=== PATIENT | female | born 1955 | race Caucasian/White ===

== ENCOUNTER 2016-08-29 00:32 | Inpatient (IN) | payer OTHER ==
[2016-08-29] VITALS (20 sets, daily range): BP systolic 95–123; BP diastolic 50–82; PULSE 80–118; RESP 12–20; O2SAT 93–100
[~2016-08-29 00:32] MED LIST: CITA20TA PO; CITA40TA PO; CLONAZEPAM0.5 M1 PO; ESTR1TAB5 PO; GABA800T PO; OXYC-176 PO
--- NOTE | 2016-08-29 00:41 | ED.REPORT ---
HPI-Overdose/Alcohol Toxicity Date of Service Aug 29, 2016 ED Provider: Kenton Gomez MD The patient is a 61 year old female who was brought to the ED via EMS after being found unconscious in her home. She was found next to two empty bottles of her normal medications (Clonazepam and Gabapentin) and is suspected to have ingested both of these. Witness states that she was making suicidal statements earlier tonight, having texted her children goodbyes. Witness also reports that she was drinking earlier tonight, she was awake and intoxicated 40 minutes prior to EMS arrival. EMS reports a GCS of 3 on arrival and she was intubated in the field (7.5 tube, marked 23cm at the teeth). EMS gave etomidate en route and Versed just prior to arrival at the ED. Nursing Notes Stated Complaint: OVERDOSE Nursing Notes Reviewed: Yes Allergies: Coded Allergies: carisoprodol (Verified Allergy, Severe, ANAPHYLAXIS, 06/26/09) meperidine HCl (Verified Adverse Reaction, Intermediate, N/V, 06/26/09) General Time Seen by Provider: 00:32 Chief Complaint Ingestion, other, Intoxicated, alcohol Modifying Factors: Intentional Hx Obtained From: Spouse, EMS Arrived By: Ambulance Onset Occurred: 1 - 15 minutes ago Symptom Duration: Since onset Recent Healthcare: No recent doctor visit, No recent hospitalization Similar Sx Previous: Yes Risk-Overdose/Alcohol Tox )( Suicide Risk Stratification RF Statements: Risk factors reviewed Past Medical History Past Medical History Notes: Past medical history limited due to patient condition. Past Medical History Depression (per spouse report) Review of Systems Unable to Obtain ROS Patient condition, Intubated Physical Exam Initial Vital Signs Vital Signs (First) Date Time Temp Pulse Resp B/P Pulse Ox O2 Delivery O2 Flow Rate FiO2 08/29/16 00:32 36.0 118 16 116/62 96 ET Tube Initial VS: Reviewed, Vital signs abnormal Neck: Supple Extremities: Vascular intact, No swelling Skin: Warm Alertness: Positive: Unresponsive Intubated and unresponsive Intubated, O2 sat in 90s 7.5 tube, marked 23 cm at the teeth Cardiovascular: Regular rhythm, Heart sounds NL Heart Rate / Rhythm: Positive: Tachycardia Abdomen: Atraumatic, Soft Mental Status: Positive: Unresponsive Exam limited due to intubation. Head / Eyes: Atraumatic, Normocephalic Pupils pinpoint bilaterally Intubated Interpretation & Diagnostics Lab Results Interpretation Result Diagram: 08/29/16 0450 08/29/16 0450 Test 08/29/16 00:40 08/29/16 01:03 Hold Purple Top Tube Received (Received) Hold Blue Top Tube Received (Received) Magnesium Level 2.2mg/dL (1.6-2.6) Troponin T 0.010ug/L (0.0-0.011) Prealbumin 27mg/dL (20-40) Hold Red Top Tube Received (Received) Hold [place] Top Tube Received (Received) Salicylates Level < 3.0ug/mL (30-250) Acetaminophen Level < 15.0ug/mL Rx (10-25) Alcohol, Quantitative 94mg/dL (0-10) Urine Color Yellow (YELLOW) Urine Appearance Hazy (CLEAR,HAZY) Urine pH 5.5 (5.0-8.0) Urine Specific Latty 1.018 (1.003-1.035) Urine Protein Negativemg/dL (NEG,TRACE) Urine Glucose (UA) Negativemg/dL (NEGATIVE) Urine Ketones Negativemg/dL (NEGATIVE) Urine Occult Blood Negative (NEGATIVE) Urine Nitrite Negative (NEGATIVE) Urine Bilirubin Negative (NEGATIVE) Urine Urobilinogen Normalmg/dL (NORMAL) Urine Leukocyte Esterase Negative (NEGATIVE) Urine RBC 0-2/hpf (0-2) Urine WBC 0-5/hpf (0-5) Urine Epithelial Cells Moderate/hpf (NONE-MOD) Urine Crystals Amorphous urates (NONE Urine Bacteria Moderate/hpf (NONE-FEW) Urine Hyaline Casts 5/20/lpf (NONE) Urine Granular Casts None seen (NONE SEEN) Urine Waxy Casts None seen (NONE SEEN) Urine Red Blood Cell Casts None seen (NONE SEEN) Urine White Blood Cell Casts None seen (NONE SEEN) Urine Mucus Present (None Seen) Urine Trichomonas None seen (NONE SEEN) Urine Yeast None (NONE SEEN) Urinalysis Comment None Urine Culture Reflexed Indicated Hold Urine Received (Received) Urine Opiates Screen Negative Urine Methadone Screen Negative Urine Barbiturates Screen Negative Urine Amphetamines Screen Negative Urine Benzodiazepines Screen Positive Urine Cocaine Metabolite Screen Negative Urine Cannabinoids Screen Negative Lab Results Interpretation: Elevated white blood count. Normal Tylenol and aspirin levels. Elevated alcohol level. Rapid urine drug positives for benzos, oxycodone, and tricyclic antidepressants. ECG Interpretation ECG Interpretation: Sinus tachycardia with rate 115 Time: 00:40 Interpreted by: ED physician ECG Interpretation: Sinus rhythm with rate [address] elevation, does not appear consistent with acute NV Time: 02:02 Interpreted by: ED physician X-Ray Chest Interpretation Chest Xray Interpretation: NG tube appears well placed, ET tube is high and may require repositioning. View: Portable, 1 view Interpretation / Wet Read by: Wet read ED physician Re-Eval/Medical Decision Med Decision/Clinical Course 61-year-old female who had an argument with her , drank a bottle of alcohol, and then took the remaining gabapentin and clonazepam pills from her bottles. The total number of pills is not known. There were other pills available but they were in a different location and did not appear to have been overused. Hematocrit of 20-30 minutes she went from slurred speech to completely unconscious. 911 was called and upon arrival the paramedics found her to have an O2 saturation in the low 70s and a GCS of 3. She was intubated without difficulty. She was transferred here in stable condition and continues to be in stable condition. Chest x-ray showed that her ET tube was a little high but all other parameters for tube placement were normal. She had a systolic blood pressure as low as 92 but consistently stayed right around 100. She did have some diffuse J-point elevation and upward sloping repolarization, possibly indicating the develop of a pericarditis. This case was discussed with Poison Control who felt that supportive care was all that was useful or indicated. She will be admitted to the CCU under Dr. Foster's care. Source of Hx: Old records Re-Evaluation/Progress #1: Time of Eval: 01:05 Re-Evaluation/Progress Note: Spoke with police who report that the patient has been admitted to [facility] in [place] for similar symptoms a year ago. Re-Evaluation/Progress #2: Time of Eval: 01:18 Re-Evaluation/Progress Note: After reviewing chest x-ray, have decided to move ET tube two cm further. Re-Evaluation/Progress #3: Time of Eval: 01:29 Re-Evaluation/Progress Note: Rechecked the patient. Her condition is unchanged after administration of 1mg of Narcan. Will order second mg and recheck. Consultation : Referral / Consult Name: Kubisty,Ani A MD Call Returned at: 01:00 Note: Discussed the patient's history and symptoms in detail with Dr. Foster, hospitalist, who agrees to admit the patient. Counseled Regarding: Diagnosis, Need for admission Discharge & Departure Impression: Primary Impression: Polysubstance overdose Encounter type: initial encounter Injury intent: intentional self-harm Qualified Code: T50.902A - Poisoning by unspecified drugs, medicaments and biological substances, intentional self-harm, initial encounter Additional Impression: Suicide attempt Discharge Condition All VS Reviewed: Yes Condition: Stable Crit Care Except Billable Proc Time Spent: 30-74 minutes Services Performed: Patient management by me, Time spent at bedside, Reviewing test results, Reviewing imaging, Discussing patient care, Documentation in record, Time with fam/surrogate Critical Care Notes: Polydrug overdose requiring intubation and CCU admission. Scribe Attestation Portions of this note were transcribed by Tripp Santillan. I, Dr. Gomez, personally performed the history, physical exam, and medical decision-making; I reviewed and confirmed the accuracy of the information in the transcribed note. Signed by: Raimundo Knox, 08/29/16 01:53. Kenton Gomez MD Aug 29, 2016 00:41 TRIPP SANTILLAN Aug 29, 2016 00:48 personally performed the history, physical exam, and medical decision-making; I reviewed and confirmed the accuracy of the information in the transcribed note. Signed by: Raimundo Knox, 08/29/16 01:53. Kenton Gomez MD Aug 29, 2016 00:41 TRIPP SANTILLAN Aug 29, 2016 00:48
[2016-08-29 00:51] LABS: Mean Corpuscular Hemoglobin 31.5 pg (27.0-35.0); Mean Corpuscular Volume 95.1 fL (81-100)
[2016-08-29] MEDS: 0.9% Sodium Chloride 1,000 ML IV ONE ×2 (01:00→03:46)
--- NOTE | 2016-08-29 01:14 | ABG ---
DateTimeAnalyzed 01:09:00 -_ pH ____7.290 - 7.350 7.450 pCO2 ___43.8__ -mmHg 35.0 45.0 pO2 ___87.2__ -mmHg 69.0 116 HCO3- ___20.4__ -mmol/L 22.0 26.0 ABE ___-5.7__ -mmol/L -2.0 2.0 tHb ___14.5__ -g/dL O2Hb ___90.5__ -% COHb ____4.7__ -% MetHb ____1.1__ -% sO2 ___96.1__ -% FIO2 ___21.0__ -% PEEP ____5.0__ -cmH2O Set_RR ___16.0__ -b/min Vt __480.0__ -L Drawn By MD - Date/Time Notified____ 01:13:00 -_ Spontaneous_RR ___16.0__ -b/min Oxygen Device 1 VENTILATOR - Notified By MD - Notified Whom __DR BEIA - B 757 -mmHg tO2 ___18.5__ -Vol% Emiliano test N/A -
[2016-08-29] MEDS ORDERED: Alum-Mag Hydrox-Simeth 30 mL Suspension PO PRN (01:20)
[2016-08-29] MEDS ORDERED: Polyethylene Glycol (PEG) 17 Gm Powder PO PRN (01:20)
[2016-08-29] MEDS ORDERED: Senna-Docusate 8.6-50 mg Tablet PO PRN (01:20)
[2016-08-29] MEDS ORDERED: Ondansetron 2 mg/mL 2 mL Inj IVPUSH PRN (01:20)
--- NOTE | 2016-08-29 01:37 | PCM.HPMED ---
Subjective Date of Service Aug 29, 2016 Primary Provider: Admitting Physician: Ani Foster MD Primary Care Physician: Other,Physician Attending Physician: Ani Foster MD Admit Status: From the Emergency Department, Full Admit, Critical Care Chief Complaint: Overdose of clonazepam, Neurontin, alcohol History of Present Illness: This is a 61-year-old female who was brought into the emergency room by EMS with an overdose of clonazepam and gabapentin. She was found unconscious in her home. Is also found next to 2 empty bottles of her normal medications. say that she had been making suicidal statements earlier tonight and in fact had text at her children advise. . also state that she was drinking earlier tonight. Labs are currently pending. EMS reports a GCS score of 3 on arrival and was intubated in the field. EMS also gave her etomidate and versed. According to an ER note ,patient does have a history of suicidal ideation and had been hospitalized approximately a year ago at [facility] in [place] for similar symptoms. No other information is currently available. Review of Systems: Review of systems is unobtainable due to the fact that the patient is intubated Allergies Coded Allergies: carisoprodol (Verified Allergy, Severe, ANAPHYLAXIS, 06/26/09) meperidine HCl (Verified Adverse Reaction, Intermediate, N/V, 06/26/09) Home Medications Currently not available PMH History of depression Family History Unobtainable Social History Hx Alcohol Use: Yes Smoking Status: Unknown if Ever Smoker Living Arrangement: with Family Exam Vital Signs Vital Sign - Last Date Time Temp Pulse Resp B/P Pulse Ox O2 Delivery O2 Flow Rate FiO2 08/29/16 00:54 94 Exam Constitutional: Patient currently is intubated Head: Normocephalic atraumatic Eyes: Pupils are pinpoint Neck: No adenopathy Chest: Clear to auscultation Cor: Regular rate and rhythm S1-S2 Abdomen: Soft nontender bowel sounds present Extremities: No pedal edema Skin: No rashes Psych: Unable to assess Neuro: Patient is currently intubated and does arouse or move all extremities to painful stimuli Lab and Diagnostics Labs Laboratory Tests 72 Hours Test 08/29/16 00:40 08/29/16 01:03 White Blood Count 12.7th/mm3 (3.8-10.1) Red Blood Count 4.89mil/mm3 (3.90-5.20) Hemoglobin 15.4g/dL (12.0-15.6) Hematocrit 46.5% (35.0-46.0) Mean Corpuscular Volume 95.1fL (81-100) Mean Corpuscular Hemoglobin 31.5pg (27.0-35.0) Mean Corpuscular Hemoglobin Concent 33.1% (32.0-37.0) Red Cell Distribution Width 14.5% (12.3-15.4) Platelet Count 308bil/L (150-400) Hold Purple Top Tube Received (Received) Hold Blue Top Tube Received (Received) Sodium Level 136mEq/L (134-144) Potassium Level 4.2mEq/L (3.5-5.2) Chloride Level 98mEq/L (97-108) Carbon Dioxide Level 21mmol/L (18-29) Blood Urea Nitrogen 9mg/dL (6-24) Creatinine 0.79mg/dL (0.57-1.00) Estimat Glomerular Filtration Rate 107mL/min (>59) Glucose Level 127mg/dL (60-99) Calcium Level 8.8mg/dL (8.5-10.1) Total Bilirubin 0.4mg/dL (0.0-1.2) Aspartate Amino Transf (AST/SGOT) 20U/L (0-50) Alanine Aminotransferase (ALT/SGPT) 26U/L (0-32) Alkaline Phosphatase 107U/L (25-165) Total Protein 7.2g/dL (6.4-8.4) Albumin 4.0g/dL (3.4-5.0) Hold Red Top Tube Received (Received) Hold [place] Top Tube Received (Received) Salicylates Level < 3.0ug/mL (30-250) Acetaminophen Level < 15.0ug/mL Rx (10-25) Alcohol, Quantitative 94mg/dL (0-10) Hold Urine Received (Received) Result Diagram: 08/29/163908/29/1639 Additional Diagnostics: [facility] MADELINE MAYS 1955 Female DateTimeAnalyzed 01:09:00 -_ pH ____7.290 - 7.350 7.450 pCO2 ___43.8__ -mmHg 35.0 45.0 pO2 ___87.2__ -mmHg 69.0 116 HCO3- ___20.4__ -mmol/L 22.0 26.0 ABE ___-5.7__ -mmol/L -2.0 2.0 tHb ___14.5__ -g/dL O2Hb ___90.5__ -% COHb ____4.7__ -% MetHb ____1.1__ -% sO2 ___96.1__ -% FIO2 ___21.0__ -% PEEP ____5.0__ -cmH2O Set_RR ___16.0__ -b/min Vt __480.0__ -L Drawn By MD - Date/Time Notified____ 01:13:00 -_ Spontaneous_RR ___16.0__ -b/min Oxygen Device 1 VENTILATOR - Notified By MD - Notified Whom __DR BEIA - B 757 -mmHg tO2 ___18.5__ -Vol% Emiliano Assessment & Plan # Overdose with clonazepam and Neurontin, acute, present on admission Supportive care and required intubation for airway protection We will also obtain urine drug screen # Suicidal ideation, acute, present on admission Place in suicide precautions Will need psychiatry consultation when medically stable # DVT prophylaxis Place on subcutaneous Lovenox and SCDs # CODE STATUS Full code. GI Prophylaxis: H2 chanda VTE Prophylaxis Indicated: CCU Admission VTE Prophylaxis: Sub-Q Enoxaparin VTE Mechanical Devices: Intermittant Pneumatic CD Resuscitation Status: CPR: Attempt Resuscitation Time spent 60 minutes Ani Foster MD Aug 29, 2016 01:37
[2016-08-29 02:00] LABS: APPEARANCE,URINE HAZY (CLEAR,HAZY); COLOR,URINE YELLOW (YELLOW); OCCULT BLOOD,URINE NEGATIVE (NEGATIVE); PH,URINE 5.5 (5.0-8.0); UROBILINOGEN,URINE NORMAL (NORMAL)
[2016-08-29 02:16] LABS: TROPONIN T 0.01 ug/L (0.0-0.011)
[2016-08-29 02:27] LABS: Magnesium 2.2 mg/dL (1.6-2.6)
[2016-08-29] MEDS: 0.9% Sodium Chloride 1,000 ML IV SCH ×4 (03:46→23:17)
[2016-08-29] MEDS: Chlorhexidine 0.12% 15 mL Oral Solution MT SCH ×6 (04:30→20:06)
[2016-08-29 05:05] LABS: BASOPHILS % (AUTO) 0.3 % (0-3); EOSINOPHILS % (AUTO) 0.9 % (0-5); MONOCYTES % (AUTO) 4.6 % (4-12); Mean Corpuscular Hemoglobin 31.5 pg (27.0-35.0); Mean Corpuscular Volume 94.2 fL (81-100); NEUTROPHILS % (AUTO) 62.2 % (40-74); Platelet Count 304 bil/L (150-400)
--- NOTE | 2016-08-29 05:29 | ABG ---
DateTimeAnalyzed 05:24:00 -_ pH ____7.437 - 7.350 7.450 pCO2 ___31.2__ -mmHg 35.0 45.0 pO2 ___97.3__ -mmHg 69.0 116 HCO3- ___20.7__ -mmol/L 22.0 26.0 ABE ___-2.1__ -mmol/L -2.0 2.0 tHb ___13.3__ -g/dL O2Hb ___95.2__ -% COHb ____1.5__ -% MetHb ____1.0__ -% sO2 ___97.6__ -% FIO2 __100.0__ -% PRVC 496 - PEEP ____5.0__ -cmH2O Set_RR ___20.0__ -b/min Vt __480.0__ -L Drawn By MD - Date/Time Notified____ 05:29:00 -_ Spontaneous_RR ___20.0__ -b/min Oxygen Device 1 VENTILATOR - Notified Whom RN - B 756 -mmHg tO2 ___17.9__ -Vol% Emiliano test _Positive -
[2016-08-29] MEDS ORDERED: 0.9% Sodium Chloride 500 ML IV PRN (05:50)
[2016-08-29] MEDS ORDERED: ARIP15TA7 PO (07:15)
[2016-08-29] MEDS ORDERED: GABA600T2 PO (07:15)
[2016-08-29] MEDS ORDERED: QUET100T69 PO (07:15)
[2016-08-29] MEDS ORDERED: GABA800T2 PO (07:15)
[2016-08-29] MEDS ORDERED: KLO5T PO (07:15)
[2016-08-29] MEDS ORDERED: SIMV20TA4 PO (07:15)
--- NOTE | 2016-08-29 07:33 | NUR ---
CCU Admission note Pt arrived from ER to CCU # 2020 approx at 0215. Pt is intubated. She sedated. Pt responded to painful stimulus. She not is following commands. She not on any sedation meds at this time. Pt was hypotensive but resolved with IVF bolus. Also slight ST elevation noted. 12 leads obtained x [address] unchanged from ER 12 leads. notified. Pt more awake and agitated since 0430. Admission assessment and screening completed and obtained from spouse. No overt complications noted. (Please refrer to CCU flow sheet for further details)
--- NOTE | 2016-08-29 07:58 | DRSVH ---
PROCEDURE: X-RAY CHEST ONE VIEW, PORTABLE ([id number]) INDICATIONS: intubated OD TECHNIQUE: One view of the chest was acquired. COMPARISON: None. FINDINGS: Surgical changes and devices: Endotracheal tube with the tip approximately 6.5 cm above the lula. E nteric tube is also present with the tip in the body of the stomach Lungs and pleura: No pleural effusions or pneumothorax. Bibasilar and retrocardiac opacities Mediastinum: Mediastinal contours appear normal. Heart size is normal. Bones and chest wall: No suspicious bony lesions. Overlying soft tissues appear unremarkable. IMPRESSION: Support equipment as above. Bibasilar patchy opacities presumably atelectasis versus aspiration. Dictated by: Berhane Garcia M.D. on 08/29/2016 at 7:57 Approved by: Berhane Garcia M.D. on 08/29/2016 at 7:57
[2016-08-29] MEDS: Famotidine Inj 50 ML IV SCH ×2 (08:15→20:06)
[2016-08-29 09:44] LABS: Mean Corpuscular Hemoglobin 31.5 pg (27.0-35.0); Mean Corpuscular Volume 93.8 fL (81-100)
--- NOTE | 2016-08-29 09:48 | DRSVH ---
PROCEDURE: X-RAY CHEST ONE VIEW, PORTABLE ([id number]) INDICATIONS: INTUBATED TECHNIQUE: One view of the chest was acquired. COMPARISON: [facility], CR, XR CHEST 1VW (PORTABLE), 08/29/2016, 0:35. FINDINGS: Surgical changes and devices: Endotracheal tube tip 3.1 cm above the lula. Unchanged enteric tube Lungs and pleura: No pleural effusions or pneumothorax. Mild patchy left basilar opacities Mediastinum: Mediastinal contours appear normal. Heart size is normal. Bones and chest wall: No suspicious bony lesions. Overlying soft tissues appear unremarkable. IMPRESSION: Increased, mild left basilar patchy opacities possibly aspiration versus atelectasis. Support equipment as above Dictated by: Berhane Garcia M.D. on 08/29/2016 at 9:46 Approved by: Berhane Garcia M.D. on 08/29/2016 at 9:46
--- NOTE | 2016-08-29 11:13 | NUR ---
NUTRITION ASSESSMENT: ASSESS:61 YO female intubated in the field related to polydrug overdose, suicide attempt, and admitted to CCU for ventilator management. NG output remains significant; enteral feeding will not be initiated today. Code status: full. PMHx:Suicide attempts, depression. DIET:NPO. LABS: Reviewed. Ca 7.9, Alb 3.0. MEDICATIONS: Reviewed. No sedation at this time. NUTRITION FOCUSED PHYSICAL ASSESSMENT: GI symptoms / stool: No stool reported.Rob: 10 Skin Integrity: No issues reported. ANTHROPOMETRICS: Current Wt: 100.3 kgBMI: 34.6 kg/m2. IBW: 61.4 kg (163.5% IBW) ESTIMATED NEEDS (CLASS 1 OBESITY, VENT): Calories: 1534 - 1841 kcal (25 -30 kcal / kg IBW) Protein: 110 - 123 g protein (1.8 - 2.0 g / kg IBW) Fluid: Approx. 1842 ml (30 ml / kg IBW) NUTRITION DIAGNOSIS: 1)Inadequate oral intake related to inability to consume sufficient energy, as evidenced by NPO / vent status. INTERVENTION: 1) In the event pt. unable to be extubated over weekend and NG output declines, enteral feeding recommendation follows. Initiate Jevity 1.5 @ 25 ml/hr unless pressor support required. Once tolerance established, recommend advance 10 ml every 4 hr. to goal rate 50 ml/hr. Flush dose 40 ml H2O every 4 hr., unless there are no IV fluids ordered and pt. is not fluid overloaded. In that case, flush dose 42 ml H2O every hr. Enteral feeding at goal would provide 1650 kcal, 70 g protein, sufficient to meet 100% kcal / 64% protein needs. 2) Once tolerance established, recommend add 1 packet ProSource four times per day to provide a total of 114 g protein, sufficient to meet 100% protein needs. MONITOR/EVALUATE: NPO / vent status, PO intake, labs, GI/nutrition status. Follow up per high nutrition risk guidelines.
--- NOTE | 2016-08-29 11:50 | CONS ---
[address] [address] CONSULTATION REPORT PATIENT: MADELINE GOLDEN : 1955 MR#: [id number] ADMIT: 08/29/2016 JOB ID: [id number] DATE OF SERVICE: 08/29/2016 PULMONARY CRITICAL CARE CONSULTATION NOTE: The patient is a 61-year-old woman presenting to the hospital on August 29, 2016 with intentional polysubstance overdose with suicidal ideation, intubated. She is seen in consultation at the request of Dr. Cohen for evaluation of respiratory failure requiring mechanical ventilation. HISTORY OF PRESENT ILLNESS: Since the patient is intubated at this time, all of the history is per review of medical records and notes by the emergency department and hospitalist admitting the patient. Briefly, she is a 61-year-old woman with prior history of suicidal ideation and attempted self-harm in the past. She apparently was found down last night sometime between 11 p.m. and midnight by her family. She had two empty bottles of clonazepam and gabapentin at her side and was presumed to have overdosed on these medications. She was found by medics to be unresponsive, with GCS of three, and they intubated her in the field with etomidate and Versed. There was also evidence of alcohol based on blood alcohol level of 95. She has received some fluid boluses overnight for hypotension and her FiO2 has been weaned down. At this time she is hemodynamically stable. Past medical history, social history, family history, and review of systems could not be obtained since the patient is intubated, but she does have a history of depression and prior attempted self-harm. PHYSICAL EXAMINATION: Vital signs reviewed. Temperature 36, pulse 80, respirations 20, BP 109/71, sats 98% on 50% FiO2 and 5 cm of PEEP. Respiratory rate on the vent is 16 with tidal volume of 470 and she is not over-breathing. General: Intubated. She is not on any sedation. She opened her eyes to voice and wiggled her fingers to command but did not track or turn her head to look at me. Neck: No cervical lymphadenopathy. Chest: Clear to auscultation. Heart: Regular rate, rhythm. No murmurs. Abdomen: Soft, nontender. No organomegaly. Extremities: No cyanosis, clubbing, or edema. Skin: No rashes. LABORATORIES: Reviewed. Notable for WBC up to 17 from 12 on admission. Hemoglobin 13, platelets 277. Chemistry is within normal limits, with the exception of bicarb which is 21. Lactate was 2.3 initially and is down to 1.3 currently. Arterial blood gas from this morning shows pH 7.43, pCO2 of 31, bicarb of 20, and pO2 of 97. Cultures, including blood, urine, and sputum, are pending. IMAGING: Reviewed her chest x-ray and ET tube is in appropriate position. She does have a right upper lobe infiltrate which could be aspiration. She also has a patchy infiltrate at the left lower lobe. ASSESSMENT: 1. Intentional drug overdose, clonazepam and gabapentin, on August 29. 2. Acute hypoxic respiratory failure, intubated for airway protection. 3. Aspiration pneumonia/pneumonitis. 4. Sepsis. RECOMMENDATIONS: This 61-year-old woman is presenting with intentional clonazepam and gabapentin overdose with respiratory failure. Time of overdose appears to be around 11 p.m. on August 28. She is just starting to open her eyes and wiggle her fingers to command, but according to RT she failed a pressure support trial this morning and did not breathe. At this point we are simply waiting for the drugs to wear off enough that she would pass her SBT, which we will re-attempt now. From an infection standpoint she does have a chest x-ray infiltrate and is at risk of aspiration. Sputum cultures are pending. I added on a procalcitonin. If this is elevated, I would recommend adding Unasyn to cover aspiration pneumonia for about seven days. She will need a psych evaluation after extubation. She is on appropriate DVT and GI prophylaxis. I spoke to her at the bedside and updated him. addendum: she did well on SBT, following commands and was extubated. I am available for questions if any but if she continues to do well, I will not plan on following her. She is ok to move out of ICU later today if she remains stable from a neuro standpoint and has a sitter as indicated for suicidal ideation TIME: Critical care time 45 minutes. MTDD
--- NOTE | 2016-08-29 13:19 | PCM.PNMED ---
Subjective Date of Service Aug 29, 2016 Subjective Patient is intubated and sedated. ROS and subjective are not obtainable Exam Vital Signs Vital Sign - Last Date Time Temp Pulse Resp B/P Pulse Ox O2 Delivery O2 Flow Rate FiO2 08/29/16 12:00 90 12 119/71 97 Mechanical Ventilator 40 08/29/16 08:00 36.0 Intake and Output 08/28/16 08/28/16 08/29/16 Cumulative From/Thru 15:00 23:00 07:00 08/29/16 01:23 - 08/29/16 05:48 Intake Total 1000 ml 1000 ml Balance 1000 ml 1000 ml Intake IV Total 1000 ml 1000 ml Exam She is intubated and sedated. Normal skull Anicteric sclerae. Neck supple. Lungs are clear, no breathing above the vent Heart is regular without murmur gallop or rub. Abdomen is soft nondistended. Extremities are free of edema. Good pedal and radial pulses. IVs and Medications Medications Reviewed: Medications were reviewed in detail Lab and Diagnostics Result Diagram: 08/29/16 0932 08/29/16 0932 Assessment & Plan 1. Overdose, polysubstance. POA. The patient is simply having her clonazepam and gabapentin wash out of her system. 2. Acute hypoxic respiratory failure. POA. This is secondary to her overdose. She is currently vented without sedation but is still deeply sedated from her medications of overdose. At this point we will simply wait for her to wake up and then pursue a breathing trial and extubation. 3. Possible aspiration. POA. She does have a infiltrate noted on chest x- ray. No fevers or chills. Sputum is pending. Pulmonology did order a post- calcitonin which is negative. Will follow clinically at this point but have a low threshold for institution of Unasyn. 4. Depression. POA. She will have a mental health evaluation after extubation. She has a history of multiple suicide attempts. 5. Critically ill. DVT and GI prophylaxis. GI Prophylaxis: H2 chanda VTE Prophylaxis: Sub-Q Enoxaparin VTE Mechanical Devices: Intermittant Pneumatic CD Resuscitation Status: CPR: Attempt Resuscitation Time spent 30 minute Emiliano Roy MD Aug 29, 2016 13:19 B 757 -mmHg tO2 ___18.5__ -Vol% Emiliano Assessment & Plan 1. Overdose, polysubstance. POA. The patient is simply having her clonazepam and gabapentin wash out of her system. 2. Acute hypoxic respiratory failure. POA. This is secondary to her overdose. She is currently vented without sedation but is still deeply sedated from her medications of overdose. At this point we will simply wait for her to wake up and then pursue a breathing trial and extubation. 3. Possible aspiration. POA. She does have a infiltrate noted on chest x- ray. No fevers or chills. Sputum is pending. Pulmonology did order a post- calcitonin which is negative. Will follow clinically at this point but have a low threshold for institution of Unasyn. 4. Depression. POA. She will have a mental health evaluation after extubation. She has a history of multiple suicide attempts. 5. Critically ill. DVT and GI prophylaxis. GI Prophylaxis: H2 chanda VTE Prophylaxis: Sub-Q Enoxaparin VTE Mechanical Devices: Intermittant Pneumatic CD Resuscitation Status: CPR: Attempt Resuscitation Time spent 30 minute Emiliano Roy MD Aug 29, 2016 13:19
--- NOTE | 2016-08-29 19:15 | NUR ---
Extubation: Pt extubated at 1430, O2 sats 95-98% on 2L NC. Pt reports no plan/wish to hurt herself at this time, admits that she was trying to kill herself last night. Signed no harm contract. Tolerating ice chips well. Membreno cath in place. Care ongoing.
[2016-08-30 01:28] LABS: BASOPHILS % (AUTO) 0.3 % (0-3); EOSINOPHILS % (AUTO) 1.6 % (0-5); MONOCYTES % (AUTO) 5.9 % (4-12); Mean Corpuscular Hemoglobin 31.7 pg (27.0-35.0); Mean Corpuscular Volume 95.5 fL (81-100); NEUTROPHILS % (AUTO) 70.6 % (40-74); Platelet Count 277 bil/L (150-400)
[2016-08-30 04:11] VITALS: BP 116/64; PULSE 99; RESP 17; O2SAT 96
--- NOTE | 2016-08-30 04:14 | NUR ---
Mentation/Cardiac/Resp Patient resting in bed this shift, denies any thoughts of self harm or suicide, did get up and pull wires and IV lines out about 2100 when she wanted to go home, explained that she needs to stay overnight and patient agreed and new IV line placed, calm with a little anxiety but baseline per patient after this situation, NSR 90's, 1L O2 sats 95%, stated she is a pack a day smoker, tolerating ice chips well without problem, no distress noted, will continue to monitor. Addendum: 08/30/16 at 6080 by LILY MORGAN RN Amended: Links added.
[2016-08-30 08:00] VITALS: BP 131/76; PULSE 84; RESP 17; O2SAT 92
[2016-08-30] MEDS: Chlorhexidine 0.12% 15 mL Oral Solution MT SCH ×2 (08:30→12:30)
[2016-08-30] MEDS: 0.9% Sodium Chloride 1,000 ML IV SCH (08:30)
[2016-08-30] MEDS: Famotidine Inj 50 ML IV SCH (08:32)
--- NOTE | 2016-08-30 08:43 | PCM.PNMED ---
Subjective Date of Service Aug 30, 2016 Subjective Patient feels better today. She was extubated yesterday. She denies suicidal ideation. She notes that a lot of what happened was a reaction to learning that her has seen someone else and that they will be . She denies suicidal ideation today. No chest pain, palpitations or dyspnea. No abdominal pain. Exam Vital Signs Vital Sign - Last Date Time Temp Pulse Resp B/P Pulse Ox O2 Delivery O2 Flow Rate FiO2 08/30/16 04:11 37.0 99 17 116/64 96 Nasal Cannula 1.00 08/29/16 12:00 40 Intake and Output 08/29/16 08/29/16 08/30/16 Cumulative From/Thru 15:00 23:00 07:00 08/29/16 01:23 - 08/30/16 05:21 Intake Total 1484 ml 2484 ml Output Total 1000 ml 1000 ml Balance 484 ml 1484 ml Intake Oral 120 ml 120 ml IV Total 1364 ml 2364 ml Output Urine Total 1000 ml 1000 ml # Bowel Movements 0 0 Exam Neuro oriented 3. No distress. Fluent speech. Neck is supple Lungs are clear, normal effort Heart is regular without murmur Abdomen soft nondistended Extremities are free of edema, good pedal pulses IVs and Medications Medications Reviewed: Medications were reviewed in detail Lab and Diagnostics Result Diagram: 08/30/1611708/30/16117 Assessment & Plan 1. Overdose, polysubstance. POA. The patient has been extubated. We will now perform her mental health evaluation. She denies suicidal ideation. 2. Acute hypoxic respiratory failure. POA. The patient was extubated yesterday and is doing well now. 3. Possible aspiration. POA. She does have a infiltrate noted on chest x- ray. No fevers or chills. Sputum is pending. Pulmonology did order a post- calcitonin which is negative. Will follow clinically at this point but have a low threshold for institution of Unasyn. There is no evidence of infection at this point we will continue to watch. 4. Depression. POA. She will have a mental health evaluation after extubation. She has a history of multiple suicide attempts. 5. Critically ill. DVT and discontinue GI prophylaxis. GI Prophylaxis: H2 chanda VTE Prophylaxis: Sub-Q Enoxaparin VTE Mechanical Devices: Intermittant Pneumatic CD Resuscitation Status: CPR: Attempt Resuscitation Time spent 25 minutes Emiliano Roy MD Aug 30, 2016 08:43 Notified Whom __DR KALI - B 757 -mmHg tO2 ___18.5__ -Vol% Emiliano Assessment & Plan 1. Overdose, polysubstance. POA. The patient has been extubated. We will now perform her mental health evaluation. She denies suicidal ideation. 2. Acute hypoxic respiratory failure. POA. The patient was extubated yesterday and is doing well now. 3. Possible aspiration. POA. She does have a infiltrate noted on chest x- ray. No fevers or chills. Sputum is pending. Pulmonology did order a post- calcitonin which is negative. Will follow clinically at this point but have a low threshold for institution of Unasyn. There is no evidence of infection at this point we will continue to watch. 4. Depression. POA. She will have a mental health evaluation after extubation. She has a history of multiple suicide attempts. 5. Critically ill. DVT and discontinue GI prophylaxis. GI Prophylaxis: H2 chanda VTE Prophylaxis: Sub-Q Enoxaparin VTE Mechanical Devices: Intermittant Pneumatic CD Resuscitation Status: CPR: Attempt Resuscitation Time spent 25 minutes Emiliano Roy MD Aug 30, 2016 08:43
--- NOTE | 2016-08-30 10:05 | NUR ---
Evaluation completed. Please go to "Notes" then click on "Assessments and Notes" (bottom left corner of screen). Then select appropriate discipline tab on top of screen.
--- NOTE | 2016-08-30 11:06 | NUR ---
Evaluation completed. Rec: Thin/Regular diet. Medication as tolerated. DIGITAL COMPUTER OPERATOR to follow. Please go to "Notes" then click on "Assessments and Notes" (bottom left corner of screen). Then select appropriate discipline tab on top of screen.
[2016-08-30 11:40] VITALS: PULSE 88
[2016-08-30 12:30] VITALS: BP 144/71; PULSE 85; RESP 19; O2SAT 92
--- NOTE | 2016-08-30 14:26 | PCM.DIMED ---
Discharge Instructions Date of Service Aug 30, 2016 Dates of Hospitalization Aug 29, 2016 at 01:31 Discharge Diagnosis Discharge Diagnosis 1. Polysubstance overdose 2. Acute respiratory failure secondary to overdose 3. Chronic depression Diet No restrictions Activity No restrictions Patient Instructions Call crisis line for suicidal ideation. See your psychiatrist this week. Follow-up with PCP in: 1 week Emiliano Roy MD Aug 30, 2016 14:26
--- NOTE | 2016-08-30 14:28 | NUR ---
Social Work Screening-Late Entry D: EMR Reviwed. Pt is a 61Y old female admitted for polydrug overdose, suicide attempt. Insurance is [employer]. PCP is Dr. Naidu. SW met with Pt's spouse on 08/29/16 Pt's spouse reports he and Pt had been fighting and he had brought up divorce. Shortly there after Pt made the suicide attempt with RX overdose. Pt's spouse reported pt connected with Psychiatrist and counselor. Pt reported to have long MH history with 1st ever suicide attempt in July 2015. A: Pt who is intubated P: Pt intubated at time SW spoke with Pt's spouse. SW to follow up with Pt once extubated to complete MH assessment. BRADEN Lawson
[2016-08-30] MEDS ORDERED: SIMV20TA4 PO (14:29)
[2016-08-30] MEDS ORDERED: KLO5T PO (14:29)
[2016-08-30] MEDS ORDERED: GABA800T2 PO (14:29)
[2016-08-30] MEDS ORDERED: QUET100T69 PO (14:29)
[2016-08-30] MEDS ORDERED: GABA600T2 PO (14:29)
--- NOTE | 2016-08-30 14:32 | NUR ---
Social Work Mental Health/Discharge Patient Name/Info: Rich Morales is a 61Y old female. Pt was admitted to [facility] following a polysubstance overdose/attempted suicide. Pt was subsequently intubated. Pt has since been extubated and is medically stable for discharge from [facility]. SW met with Pt to complete MH assessment at bedside. Date/Time: August 30, 2016 at 1415 Reason for Hospital Visit: Pt was admitted to [facility] following a polysubstance overdose/attempted suicide. Pt was subsequently intubated. Pt has since been extubated and is medically stable for discharge from [facility]. SW met with Pt to complete MH assessment at bedside. Pt reports following a fight with her , learning he has been seeing another woman and has previously contemplated divorce, she took all of her prescription medications. Pt reports she attempted to induce vomiting but was unsuccessful and "gave up" and went and lay down on her bed. Current Mental Status: Pt is currently Alert and Oriented x4 and is independent in her ADL's. Pt recalls events that led up to the overdose and the overdose itself. Psychiatric History/Treatment: Pt reports being diagnosed with Clinical Depression in her 20's. Pt also self reports a diagnosis of BiPolar Disorder and PTSD. Pt also believes she is Agoraphobic but does not have an official diagnosis. Pt is connected in the community with a psychiatrist, Dr. Hetal Bryson and therapist, Jose Roberto Latham at [facility] whom she reports having a quality theraputic relationship. Pt reports her first attempt was in July of 2015. This too was a polysubstance overdose to include alcohol. Pt reports this was a planned attempt in which she first got her affairs in order. Pt was hospitalized in July 2015 and again in August 2015 on a voluntary basis. Chemical Dependency History/Treatment/Tox Screen: Pt denies any CD history. She reports smoking cigarettes and occasional wine. Pt reports the wine bottles found near hear had been consumed the night before/earlier in the day and were not used in her suicide attempt although she admits having alcohol on board likely influenced her bodies response to the substances she ingested. Legal History/Assaultive Behavior/Violence History: Pt denies Suicide Risk/Risk Precautions/Weapons: Pt reports since have awoken and extubated she has had no thoughts of suicide. Pt does not regret that she was revived and treated for the overdose. Pt reports if she has feelings of SI following discharge she will reach out to friends, family and her therapist. SW provided pt with Crisis Line Number. Diagnosis: [place] 1: Bipolar I, severe, Current Episode Depressed F31.4 PTSD (by hx) [place] 2: Deferred [place] 3: Deferred [place] 4: Deferred Disposition/Plan: Pt is medically stable and discharging home with her . Pt reports she will need medications to get through a few days until her psychiatrist can provide refills. Pt reports she will call her therapist and get in to see him CARLOS and request more frequent sessions. Pt reports she will call friends, tell her spouse/son, therapist or call crisis line (number provided) if she has a recurrence of suicidal thoughts. Crisis Line Referral: Pt provided with number for crisis line and instructed it is open 15/03. Pt denies no other needs for discharge.
--- NOTE | 2016-08-30 14:48 | PCM.DC.MED ---
Discharge Summary Date of Service Aug 30, 2016 Dates of Hospitalization Date of Hospital Admission Aug 29, 2016 at 01:31 Date of Discharge: Aug 30, 2016 Providers: Admitting Physician: Ani Foster MD Primary Care Physician: Ramila Naidu MD Attending Physician: Ani Foster MD Diagnosis at Time of Discharge Diagnosis at Time of Discharge 1. Polysubstance overdose 2. Acute respiratory failure secondary to overdose 3. Chronic depression Consultations Mental health evaluation Pulmonary critical care Dr. Gaspar Procedures XRay, CTs & MRIs Chest x-ray 2 indicating a possible left lower lobe patchy infiltrate., No clinical evidence of pneumonia while hospital. Brief History This is a 61-year-old female who was brought into the emergency room by EMS with an overdose of clonazepam and gabapentin. She was found unconscious in her home. Is also found next to 2 empty bottles of her normal medications. . say that she had been making suicidal statements earlier tonight and in fact had text at her children advise. Mrs. also state that she was drinking earlier tonight. Labs are currently pending. EMS reports a GCS score of 3 on arrival and was intubated in the field. EMS also gave her etomidate and versed. According to an ER note ,patient does have a history of suicidal ideation and had been hospitalized approximately a year ago at [facility] in [place] for similar symptoms. No other information is currently available. Hospital Course 1. Overdose, polysubstance. POA. The patient has been extubated. We will now perform her mental health evaluation. She denies suicidal ideation. 2. Acute hypoxic respiratory failure. POA. The patient was extubated yesterday and is doing well now. 3. Possible aspiration. POA. She does have a infiltrate noted on chest x- ray. No fevers or chills. Sputum is pending. Pulmonology did order a post- calcitonin which is negative. Will follow clinically at this point but have a low threshold for institution of Unasyn. There is no evidence of infection at this point we will continue to watch. 4. Depression. POA. She will have a mental health evaluation after extubation. She has a history of multiple suicide attempts. 5. Critically ill. DVT and discontinue GI prophylaxis. Patient is admitted for polysubstance overdose. She is intubated for airway protection and acute hypoxic respiratory failure. She was to be sedated from her benzodiazepine and gabapentin overdose. She ultimately O awakened and was extubated after breathing trial without any acute difficulties. She had an evaluation by mental health on the day of discharge. She was felt to be stable for discharge, denying suicidal ideation. Multiple resources were available to her and she understood a plan including crisis line. She also has a professional that she will see this week. She is discharged without antibiotics as there is no clinical indication of pulmonary infection. Exam Vital Signs (Last) Date Time Temp Pulse Resp B/P Pulse Ox O2 Delivery O2 Flow Rate FiO2 08/30/16 12:30 36.9 85 19 144/71 92 Nasal Cannula 1.00 08/29/16 12:00 40 Exam Alert oriented in no acute distress. Fluent speech Neck is supple. Lungs are clear, normal effort. Heart is regular without murmur Abdomen soft. Extremities are free of edema. Test 08/29/16 00:40 08/29/16 01:03 08/29/16 04:50 08/29/16 09:32 Hold Purple Top Tube Received (Received) Hold Blue Top Tube Received (Received) Hemoglobin A1c 6.0% (4.8-5.6) Magnesium Level 2.2mg/dL (1.6-2.6) Troponin T 0.010ug/L (0.0-0.011) Prealbumin 27mg/dL (20-40) Hold Red Top Tube Received (Received) Hold [place] Top Tube Received (Received) Salicylates Level < 3.0ug/mL (30-250) Acetaminophen Level < 15.0ug/mL Rx (10-25) Alcohol, Quantitative 94mg/dL (0-10) Urine Color Yellow (YELLOW) Urine Appearance Hazy (CLEAR,HAZY) Urine pH 5.5 (5.0-8.0) Urine Specific [place] 1.018 (1.003-1.035) Urine Protein Negativemg/dL (NEG,TRACE) Urine Glucose (UA) Negativemg/dL (NEGATIVE) Urine Ketones Negativemg/dL (NEGATIVE) Urine Occult Blood Negative (NEGATIVE) Urine Nitrite Negative (NEGATIVE) Urine Bilirubin Negative (NEGATIVE) Urine Urobilinogen Normalmg/dL (NORMAL) Urine Leukocyte Esterase Negative (NEGATIVE) Urine RBC 0-2/hpf (0-2) Urine WBC 0-5/hpf (0-5) Urine Epithelial Cells Moderate/hpf (NONE-MOD) Urine Crystals Amorphous urates (NONE Urine Bacteria Moderate/hpf (NONE-FEW) Urine Hyaline Casts 5/20/lpf (NONE) Urine Granular Casts None seen (NONE SEEN) Urine Waxy Casts None seen (NONE SEEN) Urine Red Blood Cell Casts None seen (NONE SEEN) Urine White Blood Cell Casts None seen (NONE SEEN) Urine Mucus Present (None Seen) Urine Trichomonas None seen (NONE SEEN) Urine Yeast None (NONE SEEN) Urinalysis Comment None Urine Culture Reflexed Indicated Hold Urine Received (Received) Urine Opiates Screen Negative Urine Methadone Screen Negative Urine Barbiturates Screen Negative Urine Amphetamines Screen Negative Urine Benzodiazepines Screen Positive Urine Cocaine Metabolite Screen Negative Urine Cannabinoids Screen Negative Hold [place] Top Tube Received (Received) Procalcitonin < 0.05ng/mL (See Comment) Test 08/30/16 01:18 White Blood Count 13.1th/mm3 (3.8-10.1) Red Blood Count 4.04mil/mm3 (3.90-5.20) Hemoglobin 12.8g/dL (12.0-15.6) Hematocrit 38.6% (35.0-46.0) Mean Corpuscular Volume 95.5fL (81-100) Mean Corpuscular Hemoglobin 31.7pg (27.0-35.0) Mean Corpuscular Hemoglobin Concent 33.2% (32.0-37.0) Red Cell Distribution Width 14.4% (12.3-15.4) Platelet Count 277bil/L (150-400) Neutrophils (%) (Auto) 70.6% (40-74) Lymphocytes (%) (Auto) 21.4% (14-46) Monocytes (%) (Auto) 5.9% (4-12) Eosinophils (%) (Auto) 1.6% (0-5) Basophils (%) (Auto) 0.3% (0-3) Sodium Level 142mEq/L (134-144) Potassium Level 3.9mEq/L (3.5-5.2) Chloride Level 109mEq/L (97-108) Carbon Dioxide Level 22mmol/L (18-29) Blood Urea Nitrogen 7mg/dL (6-24) Creatinine 0.72mg/dL (0.57-1.00) Estimat Glomerular Filtration Rate 119mL/min (>59) Glucose Level 102mg/dL (60-99) Lactic Acid Level 0.6mmol/L (0.4-2.0) Calcium Level 7.9mg/dL (8.5-10.1) Total Bilirubin 0.5mg/dL (0.0-1.2) Aspartate Amino Transf (AST/SGOT) 13U/L (0-50) Alanine Aminotransferase (ALT/SGPT) 15U/L (0-32) Alkaline Phosphatase 91U/L (25-165) Total Protein 5.7g/dL (6.4-8.4) Albumin 2.9g/dL (3.4-5.0) Discharge Medications Discharge Medications Gabapentin (Gabapentin) 600 Mg Tablet 600 MG PO HS Prescribed by: ALFREDO RAE MD Quetiapine Fumarate (Quetiapine Fumarate) 100 Mg Tablet 100 MG PO HS Prescribed by: ALFREDO RAE MD Simvastatin (Simvastatin) 20 Mg Tablet 20 MG PO HS Prescribed by: ALFREDO RAE MD As needed Clonazepam (Clonazepam) 0.5 Mg Tablet 2-2.5 TAB PO DAILY PRN PRN For Anxiety Prescribed by: ALFREDO RAE MD Gabapentin (Gabapentin) 800 Mg Tablet 800 MG PO TID PRN PRN For Pain Prescribed by: ALFREDO RAE MD Followup Plan Disposition: Home Discharge Diet: No restrictions Discharge Activity: No restrictions Patient Instructions Call crisis line for suicidal ideation. See your psychiatrist this week. Follow-up with PCP in: 1 week Time spent 40 minutes Alfredo Rae MD Aug 30, 2016 14:48
--- NOTE | 2016-08-30 15:39 | NUR ---
Discharge: A/o, VSS, tele SR, RA O2 sats 94%. Tolerating PO intake, voiding independently, up ad kathy with no gait instability noted. IV d/c'd intact. Pt denies any plans for self harm, suicidal ideation. Given care notes r/t suicide prevention, discussed resources available, pt to see psychiatrist this week. Given prescriptions to tide her over for the week until she sees psychiatrist/PCP. D/c'd home with all personal belongings, family providing transport.
== END 2016-08-30 15:16 | disposition home or self-care (01) | DRG 812 ==
LOC: SED 00:32 → CCU 01:31 → PCC 08-30 12:47
PROVIDERS: ADMIT Specialist; ATTEND Specialist
PROC: 5A1935Z Respiratory Ventilation, Less than 24 Consecutive Hours (ICD-10-PCS; principal; 2016-08-29)
DX: T42.4X2A Poisoning by benzodiazepines, intentional self-harm, initial encounter (principal); J96.01 Acute respiratory failure with hypoxia; T43.8X2A Poisoning by other psychotropic drugs, intentional self-harm, initial encounter; T51.0X2A Toxic effect of ethanol, intentional self-harm, initial encounter; R40.2431 Glasgow coma scale score 3-8, in the field [EMT or ambulance]; Y92.009 Unspecified place in unspecified non-institutional (private) residence as the place of occurrence of the external cause; F32.9 Major depressive disorder, single episode, unspecified